=== PATIENT | female | born 1930 | race Caucasian/White ===

== ENCOUNTER → 2016-04-13 | Outpatient (CLI) | payer OTHER ==
--- NOTE | 2016-04-14 10:13 | MA ---
Screening Digital Mammogram With iCAD April 13, 2016 Indication: Routine screening. Technique: Standard cephalocaudal and mediolateral oblique projections are obtained. This examinati on is processed by the iCAD computer-aided detection system. Comparison: March 2015, August 2013, and May 2011. Breast Density: Type B - 25-50%. Findings: CAD was reviewed. No suspicious microcalcifications, mass, or architectural distortion. Impression: Negative mammogram. BI-RADS 1. Recommendation: Routine screening is recommended in one year. [facility] will send a result letter to the patient. Negative mammography should not preclude additional workup of a clinically suspicious finding. The patient's information is entered into a reminder system with a target due date for her next mammo gram.
== END ==
LOC: CIMAGING 10:32
DX: Z12.31 Encounter for screening mammogram for malignant neoplasm of breast (principal)
CPT/HCPCS: G0202

== ENCOUNTER → 2017-01-16 | Outpatient (CLI) | payer OTHER | LOC: CIMAGING 12:31 | PROVIDERS: ATTEND Family Medicine | DX: M51.36 Other intervertebral disc degeneration, lumbar region (principal); M79.604 Pain in right leg | CPT/HCPCS: 72100-PO; 73590-PO ==

== ENCOUNTER → 2017-02-02 | Outpatient (CLI) | payer OTHER | LOC: FIMAGING 11:50 | PROVIDERS: ATTEND Family Medicine | DX: M54.31 Sciatica, right side (principal); M79.604 Pain in right leg; M54.16 Radiculopathy, lumbar region; M51.36 Other intervertebral disc degeneration, lumbar region; M43.16 Spondylolisthesis, lumbar region; N28.1 Cyst of kidney, acquired; R93.7 Abnormal findings on diagnostic imaging of other parts of musculoskeletal system ==

== ENCOUNTER → 2017-02-28 | Outpatient (CLI) | payer OTHER | LOC: CIMAGING 10:53 | PROVIDERS: ATTEND Physical Medicine & Rehabilitation Neuromuscular Medicine | DX: M53.2X6 Spinal instabilities, lumbar region (principal); M43.16 Spondylolisthesis, lumbar region | CPT/HCPCS: 72100-PO ==

== ENCOUNTER → 2017-04-17 | Outpatient (CLI) | payer OTHER | LOC: BHCLAF 10:00 | PROVIDERS: ATTEND Internal Medicine Cardiovascular Disease | DX: I72.9 Aneurysm of unspecified site (principal) | CPT/HCPCS: 93306-PO ==

== ENCOUNTER 2017-11-27 12:49 | Emergency (ER) | payer OTHER ==
[2017-11-27] MEDS ORDERED: IPRATROPIUM/ALBUTEROL 3 ML DEYVIAL IH ONE (13:01)
[2017-11-27] MEDS ORDERED: levOFLOXACIN 500 MG/DEXTROSE 100 ML IV ONE (14:21)
--- NOTE | 2017-11-27 14:22 | EDPHY ---
H & P Stated Complaint: SOB, fever, increased urination Time Seen by Provider: 11/27/17 12:50 HPI/ROS: 87-year-old female presents complaining of cough, greens phlegm and shortness of breath for the last 3-4 days. She denies history of lung disease, she does not use home oxygen. She denies chest pain. She went to see her primary care physician today for her cough who brought her to the emergency department. Review of systems As per HPI General positive fever positive chills no weakness HEENT no eye pain no eye discharge. No eye redness, no sore throat Respiratory positive cough, positive shortness of breath Cardiac no chest pain, no peripheral edema GI no abdominal pain, no diarrhea, no constipation, no nausea, no vomiting no flank pain, no hematuria, no dysuria Musculoskeletal no myalgias, no joint pain Heme no easy bruising, no easy bleeding Endo no polyuria, no polydipsia Skin no rashes, no pruritus Neuro no syncope, no dizziness, no headaches Psych is no suicidal ideation, no homicidal ideation Source: Patient, Family Exam Limitations: No limitations - Personal History Current Tetanus Diphtheria and Acellular Pertussis (TDAP): Yes - Medical/Surgical History Hx Asthma: No Hx Chronic Respiratory Disease: No Hx Diabetes: No Hx Cardiac Disease: Yes Hx Renal Disease: No Hx Cirrhosis: No Hx Alcoholism: No Hx HIV/AIDS: No Hx Splenectomy or Spleen Trauma: No Other PMH: orthopedic surgeries BL knees, cataract removal, aortic aneurysm - Family History Significant Family History: No pertinent family hx - Social History Smoking Status: Former smoker Alcohol Use: None Drug Use: None - Physical Exam Exam: 87-year-old female alert and oriented, tachypneic, mild respiratory distress, temperature 37.3 Atraumatic normocephalic Oropharynx dry Neck no JVD, supple no meningismus Lungs diffuse wheeze Heart regular rate and rhythm without murmur rub or gallop Abdomen nondistended bowel sounds present soft nontender Extremities no cyanosis clubbing , trace edema Neuro alert and oriented, no focal deficits Constitutional: Initial Vital Signs Temperature (C) 37.3 C 11/27/17 12:56 Heart Rate 81 11/27/17 12:56 Respiratory Rate 20 11/27/17 12:56 Blood Pressure 107/68 11/27/17 12:56 O2 Sat (%) 80 L 11/27/17 12:56 O2 Delivery Mode Nasal Cannula O2 (L/minute) 3.5 Allergies/Adverse Reactions: erythromycin base [Erythromycin Base] Allergy (Mild, Verified 11/27/17 13:58) Penicillins Allergy (Mild, Verified 11/27/17 13:58) Hives Home Medications: Medication Instructions Recorded Aspirin 81mg (*) 11/27/17 Ramipril 11/27/17 Synthroid 11/27/17 Vitamin D3 11/27/17 Medical Decision Making - Diagnostics Imaging Results: Imaging Impressions Chest X-Ray 11/27/17 13:40 Impression: Multifocal consolidation suggesting pneumonia. Radiographic follow up is recommended to resolution. Findings discussed with Dr. Jazmyn Kirkland on November 27, 2017 at 1431 hours. ED Course/Re-evaluation: Patient seen and evaluated for cough, chills, green phlegm, shortness of breath. DuoNeb started IV established Lab sent Lactate 1.6 Troponin negative CBC white blood cell count 14.9 differential pending Blood culture sent CMP within normal limits BNP elevated at 17 50 Chest x-ray with multifocal lobar infiltrate Patient allergic to both erythromycin and penicillin, Levaquin 500 mg IV piggyback started Patient given normal saline 500 cc IV. Also given an additional albuterol nebulizer treatment Patient's initial saturation 80% After DuoNeb and on a 3 L nasal cannula patient is saturating 92-94%, appears more comfortable. Impression Multiple focal lobar pneumonia Plan Admit [facility], patient's choice Discussed with hospitalist Dr. Bowen at [facility] accepted to a telemetry bed Bed assigned at [facility]. Awaiting ambulance transport. Differential Diagnosis: Differential diagnosis considered but not limited to Pneumonia, congestive heart failure, pleural effusion, pulmonary hypertension, asthma, COPD - Data Points Laboratory Results: Laboratory Results 11/27/17 13:15 11/27/17 11/27/17 11/27/17 13:31 13:31 13:21 WBC RBC Hgb Hct MCV MCH MCHC RDW Plt Count MPV Neut % (Auto) Lymph % (Auto) [place] % (Auto) Eos % (Auto) Baso % (Auto) Nucleat RBC Rel Count Absolute Neuts (auto) Absolute Lymphs (auto) Absolute Monos (auto) Absolute Eos (auto) Absolute Basos (auto) Absolute Nucleated RBC Immature Gran % Seg Neutrophils % Band Neutrophils % Lymphocytes % Monocytes % Eosinophils % Basophils % Metamyelocytes % Myelocytes % Promyelocytes % Blast Cells % Immature Gran # Absolute Seg Neuts Absolute Band Neuts Absolute Lymphocytes Absolute Monocytes Absolute Eosinophils Absolute Basophils Absolute Metamyelocyte Absolute Myelocytes Absolute Promyelocytes Absolute Plasma Cells Nucleated RBCs RBC/WBC/PLT Morphology Absolute Blast Cells Plasma Cells % Platelet Estimate POC Sodium 136 mEq/L mEq/L (135-145) POC Potassium 4.3 mEq/L mEq/L (3.3-5.0) POC Chloride 100.0 mEq/L mEq/L (97-110) POC Total CO2 27 mEq/L mEq/L (22-31) POC BUN 20 mg/dL mg/dL (7-23) POC Creatinine 0.9 mg/dL mg/dL (0.6-1.0) POC Glucose 121 mg/dL H mg/dL (70-100) POC Lactic Acid Abelino 1.6 mmol/L mmol/L (0.7-2.1) POC Calcium 9.5 mg/dL mg/dL (8.5-10.4) POC Total Bilirubin 0.7 mg/dL mg/dL (0.1-1.4) POC AST 27 IU/L IU/L (14-46) POC ALT 17 IU/L IU/L (9-52) POC Alk Phosphatase 70 IU/L IU/L (38-126) POC Troponin I 0.03 ng/mL ng/mL (0.00-0.08) NT-Pro-B Natriuret Pep POC Total Protein 7.6 g/dL g/dL (6.3-8.2) POC Albumin 3.4 g/dL L g/dL (3.5-5.0) 11/27/17 11/27/17 13:15 13:15 WBC 14.90 10^3/uL H 10^3/uL (3.80-9.50) RBC 4.66 10^6/uL 10^6/uL (4.18-5.33) Hgb 14.0 g/dL g/dL (12.6-16.3) Hct 42.5 % % (38.0-47.0) MCV 91.2 fL fL (81.5-99.8) MCH 30.0 pg pg (27.9-34.1) MCHC 32.9 g/dL g/dL (32.4-36.7) RDW 14.7 % % (11.5-15.2) Plt Count 242 10^3/uL 10^3/uL (150-400) MPV 10.5 fL fL (8.7-11.7) Neut % (Auto) Not Reported Lymph % (Auto) Not Reported Lincoln % (Auto) Not Reported Eos % (Auto) Not Reported Baso % (Auto) Not Reported Nucleat RBC Rel Count Not Reported Absolute Neuts (auto) Not Reported Absolute Lymphs (auto) Not Reported Absolute Monos (auto) Not Reported Absolute Eos (auto) Not Reported Absolute Basos (auto) Not Reported Absolute Nucleated RBC Not Reported Immature Gran % Not Reported Seg Neutrophils % 84.0 % % Band Neutrophils % 6.0 % % Lymphocytes % 5.0 % % Monocytes % 5.0 % % Eosinophils % 0.0 % % Basophils % 0.0 % % Metamyelocytes % 0.0 % % Myelocytes % 0.0 % % Promyelocytes % 0.0 % % Blast Cells % 0.0 % % Immature Gran # Not Reported Absolute Seg Neuts 12.52 10^/uL H 10^/uL (1.70-6.50) Absolute Band Neuts 0.89 10^3/uL H 10^3/uL (0.00-0.70) Absolute Lymphocytes 0.75 10^3/uL L 10^3/uL (1.00-3.00) Absolute Monocytes 0.75 10^3/uL 10^3/uL (0.30-0.80) Absolute Eosinophils 0.00 10^3/uL L 10^3/uL (0.03-0.40) Absolute Basophils 0.00 10^3/uL L 10^3/uL (0.02-0.10) Absolute Metamyelocyte 0.00 10^3/mL 10^3/mL (0.00-0.00) Absolute Myelocytes 0.00 10^3/mL 10^3/mL (0.00-0.00) Absolute Promyelocytes 0.00 10^3/uL 10^3/uL (0.00-0.00) Absolute Plasma Cells 0.00 10^3/uL 10^3/uL (0.00-0.00) Nucleated RBCs 0 /100 WBC /100 WBC (0-0) RBC/WBC/PLT Morphology NORMAL (NORMAL) Absolute Blast Cells 0.00 10^3/uL 10^3/uL (0.00-0.00) Plasma Cells % 0.0 % % Platelet Estimate ADEQUATE (ADEQ) POC Sodium POC Potassium POC Chloride POC Total CO2 POC BUN POC Creatinine POC Glucose POC Lactic Acid Abelino POC Calcium POC Total Bilirubin POC AST POC ALT POC Alk Phosphatase POC Troponin I NT-Pro-B Natriuret Pep 1750 pg/mL H pg/mL (0-450) POC Total Protein POC Albumin Medications Given: Levofloxacin/Dextrose (Levaquin 500 Mg (Premix)) 100 mls @ 100 mls/hr IV EDNOW ONE PRN Reason: Protocol Stop: 11/27/17 15:20 Last Admin: 11/27/17 14:51 Dose: 100 mls Discontinued Medications Albuterol/Ipratropium (Duoneb) 3 ml IH EDNOW ONE Stop: 11/27/17 13:02 Last Admin: 11/27/17 13:08 Dose: 3 ml Point of Care Test Results: Chemistry 11/27/17 11/27/17 13:31 13:31 POC Sodium 136 mEq/L mEq/L (135-145) POC Potassium 4.3 mEq/L mEq/L (3.3-5.0) POC Chloride 100.0 mEq/L mEq/L (97-110) POC Total CO2 27 mEq/L mEq/L (22-31) POC BUN 20 mg/dL mg/dL (7-23) POC Creatinine 0.9 mg/dL mg/dL (0.6-1.0) POC Glucose 121 mg/dL H mg/dL (70-100) POC Calcium 9.5 mg/dL mg/dL (8.5-10.4) POC Total Bilirubin 0.7 mg/dL mg/dL (0.1-1.4) POC AST 27 IU/L IU/L (14-46) POC ALT 17 IU/L IU/L (9-52) POC Alk Phosphatase 70 IU/L IU/L (38-126) POC Troponin I 0.03 ng/mL ng/mL (0.00-0.08) POC Total Protein 7.6 g/dL g/dL (6.3-8.2) POC Albumin 3.4 g/dL L g/dL (3.5-5.0) Blood Gas/Lactic Acid-Venous 11/27/17 13:21 POC Lactic Acid Abelino 1.6 mmol/L mmol/L (0.7-2.1) Influenza PCR Flu Nasal Swab Collection Date 11/27/17 Flu Nasal Swab Collection Date 11/27/17 Flu Nasal Swab Collection Time 13:50 Flu Nasal Swab Collection Time 13:45 Influenza A Result Not Detected Influenza A Result Not Detected Influenza B Result Not Detected Influenza B Result Not Detected Departure - Departure Disposition: Acute [facility] Clinical Impression: Pneumonia Condition: Fair Referrals: Delmy Paris MD [Primary Care Provider] - As per Instructions
--- NOTE | 2017-11-27 14:29 | CPEKG ---
Test Reason : OPEN Blood Pressure : / mmHG Vent. Rate : 081 BPM Atrial Rate : 081 BPM P-R Int : 136 ms QRS Dur : 092 ms QT Int : 370 ms P-R-T Axes : 048 008 074 degrees QTc Int : 430 ms Sinus rhythm LVH with secondary repolarization abnormality Confirmed by Jazmyn Kirkland ([id number] on 11/27/2017 2:28:24 PM Referred By: Confirmed By:Jazmyn Kirkland
[2017-11-27 14:38] LABS: PLATELET COUNT 242 10^3/uL (150-400)
[2017-11-27] MEDS ORDERED: NS 500 ML IV ONE (15:05)
[2017-11-27] MEDS ORDERED: ALBUTEROL 3 ML DEYVIAL IH ONE (15:05)
[2017-11-27] MEDS ORDERED: ACETAMINOPHEN 500 MG TAB PO ONE (15:20)
[2017-11-27] MEDS ORDERED: methylPREDNISolone SOD SUCC 125 MG/2 ML VIAL IVP ONE (15:21)
[2017-11-27 15:37] VITALS: BP 98/62
== END 2017-11-27 15:56 | disposition short-term general hospital (02) ==
LOC: CED 12:49
DX: J18.9 Pneumonia, unspecified organism (principal); E86.9 Volume depletion, unspecified; Z87.891 Personal history of nicotine dependence
CPT/HCPCS: 71046; 93005; 96365; 96375; 99285; J1956; J2930; J7613; 80053-PO; 83605-PO; 84484-PO

== ENCOUNTER → 2018-01-01 | Outpatient (CLI) | payer OTHER | LOC: CIMAGING 10:01 | PROVIDERS: ATTEND Family Medicine | DX: J18.1 Lobar pneumonia, unspecified organism (principal) | CPT/HCPCS: 71046-PO ==

== ENCOUNTER → 2018-01-02 | Outpatient (CLI) | payer OTHER | LOC: BHCLAF 09:00 | PROVIDERS: ATTEND Internal Medicine Cardiovascular Disease | DX: I71.2 Thoracic aortic aneurysm, without rupture (principal); I10 Essential (primary) hypertension; E78.2 Mixed hyperlipidemia | CPT/HCPCS: 93005-PO ==

== ENCOUNTER → 2018-05-09 | Outpatient (CLI) | payer OTHER | LOC: CIMAGING 10:12 | PROVIDERS: ATTEND Family Medicine | DX: Z12.31 Encounter for screening mammogram for malignant neoplasm of breast (principal); R06.02 Shortness of breath | CPT/HCPCS: 71046-PO ==

== ENCOUNTER → 2018-07-30 | Outpatient (CLI) | payer OTHER | DX: R07.9 Chest pain, unspecified (principal) | CPT/HCPCS: 78452; 93017; A9500; J2785 ==